=== PATIENT | male | born 1985 | race Caucasian/White ===

== ENCOUNTER 2019-10-06 04:35 | Day surgery (SDC) | payer BC ==
--- NOTE | 2019-09-08 11:33 | HP ---
DATE OF ADMISSION: 10/06/2019 BRIEF HISTORY: This is a 33-year-old gentleman who several months ago noted a lump in his right groin. Patient states the lump causes him discomfort, and depending on the day, the lump is sometimes larger than other days. He has had no nausea, no vomiting, no change in bowel habits. PAST MEDICAL HISTORY: No cardiac disease, hypertension, or diabetes. PAST SURGICAL HISTORY: Patient has had an open appendectomy approximately 15 years ago. ALLERGIES: None. MEDICATION: Vitamin C. SOCIAL HISTORY: Patient does not smoke. No history of drug use, and he drinks socially. PHYSICAL EXAMINATION: Abdomen: Soft, nontender, nondistended. He has a large right inguinal hernia which is reducible in the supine position. There is still a fair amount of fat in the right groin. There is slight asymmetry of fat in the right groin compared to the left groin. There is no obvious hernia in the left groin. Some laxity noted. A small hernia cannot be entirely ruled out. Both scrotum and testicles were within normal limits. IMPRESSION/PLAN: Right inguinal hernia, left floor laxity: This is a 33-year-old gentleman symptomatic from right inguinal hernia. At this point I would recommend repairing the right inguinal hernia, and at the time of laparoscopy the left side will be examined as well. If an occult hernia is noted, it will be repaired. If no hernia is seen, a piece of mesh will be left in direct inguinal space for reinforcement. The indications, alternatives, complications of procedure discussed. Questions answered. Will plan on obtaining written consent the day of surgery. ANALISA ROGEL M.D. [id number] cc: Dr. Diaz, [address] [place] [address], [facility]
[2019-10-01 15:30] VITALS: BMI 29.2
[2019-10-06] MEDS ORDERED: TAMSULOSIN HCL 0.4 MG CAP ONE (07:14)
[2019-10-06] MEDS ORDERED: SUCCINYLCHOLINE CHLORIDE 200 MG/10 ML SYRINGE ONE (07:22)
[2019-10-06] MEDS ORDERED: PROPOFOL 20 ML ONE (07:22)
[2019-10-06] MEDS ORDERED: ROCURONIUM BROMIDE 100 MG/10 ML VIAL ONE (07:22)
[2019-10-06] MEDS ORDERED: MIDAZOLAM HCL 2 MG/2 ML SINGLE DOSE VIAL ONE ×3 (07:22→07:42)
[2019-10-06] MEDS ORDERED: LIDOCAINE HCL/PF 2% SDV 5ML VIAL ONE (07:23)
[2019-10-06] MEDS ORDERED: DEXAMETHASONE SOD PHOSPHATE/PF 10 MG/ML SDV ONE (07:41)
[2019-10-06] MEDS ORDERED: ceFAZolin SODIUM 1 GM VIAL ONE (08:22)
[2019-10-06] MEDS ORDERED: ceFAZolin SODIUM 1 GM VIAL IVPB ONE (08:23)
[2019-10-06] MEDS ORDERED: GLYCOPYRROLATE 0.2 MG/1 ML VIAL ONE (09:07)
[2019-10-06] MEDS ORDERED: NEOSTIGMINE METHYLSULFATE 0.5 MG/ML - 10 ML MDV ONE (09:07)
[2019-10-06] MEDS ORDERED: DEXAMETHASONE SOD PHOSPHATE 4 MG/1 ML VIAL ONE (09:10)
[2019-10-06] MEDS ORDERED: oxyCODONE HCL 5 MG TABLET PO PRN ×2 (09:52)
[2019-10-06] MEDS ORDERED: ONDANSETRON 4 MG/2 ML VIAL IVPUSH PRN (09:52)
[2019-10-06] MEDS ORDERED: LACTATED RINGERS SOLUTION 1,000 ML IV SCH (10:00)
--- NOTE | 2019-10-06 12:11 | OP ---
DATE OF OPERATION: 10/06/2019 PREOPERATIVE DIAGNOSIS: Chronically incarcerated right inguinal hernia. POSTOPERATIVE DIAGNOSIS: Chronically incarcerated right pantaloon inguinal hernia, left indirect inguinal hernia. PROCEDURE: Laparoscopic repair of incarcerated right inguinal hernia with mesh, laparoscopic repair of left inguinal hernia with mesh. SURGEON: Alberto Jacob MD BMX RIDER: Gary eDan MD ANESTHESIA: Vicki Menchaca MD (general). ESTIMATED BLOOD LOSS: Minimal. SPECIMEN: None. INDICATION FOR PROCEDURE: This is a 33-year-old gentleman symptomatic from a large chronically incarcerated right inguinal hernia. It is causing discomfort. He wished to have this repaired. DESCRIPTION OF PROCEDURE: Patient identified and appropriately position on the operating room table. After placement of general anesthesia, prepped and draped in the usual sterile fashion with ChloraPrep. An infraumbilical incision was made on the right side and deepened into the subcutaneous tissue. The fascia of the rectus muscle on the right identified, divided sharply and the muscle split. Under direct vision, a resector balloon followed by a structural balloon was placed. Also under direct vision, suprapubic 11-mm port placed. The following structures on the right side were identified: Pubic tubercle, Sher's ligament, inferior epigastric vessels, and lateral abdominal wall. During this dissection, patient was noted to have an incarcerated direct inguinal hernia containing fat. This was reduced back into the preperitoneal space with blunt dissection. He also had a large indirect inguinal hernia that was incarcerated through the internal ring. A 5-mm left lower quadrant PD port placed under direct vision to facilitate this dissection. Once the sac was reduced, a 5.5 x 6 piece of Versatex mesh was keyholed, placed through the superior port site. The mesh wrapped around the cord structures laterally to reconstruct the internal ring. Laterally, mesh anchored to the anterior abdominal wall and lateral abdominal wall. Medially, the mesh anchored to the anterior abdominal wall, pubic tubercle, Sher's ligament. Upon completion of the right side, similar structures on the left side identified. On the left side he had some attenuation of the direct inguinal floor, but no true defect. He also had a small indirect inguinal hernia sac reduced back into the preperitoneal space. Another 5.5 x 6 piece of Versatex mesh was keyholed, placed through the superior port site. The mesh wrapped around the cord structures laterally to reconstruct the internal ring. Laterally, mesh anchored to the anterior abdominal wall and lateral abdominal wall. Medially, mesh well overlapped in the midline, anchored to the anterior abdominal wall, pubic tubercle, and Sher's ligament. The preperitoneal space was desufflated under direct vision, the operative field noted to be hemostatic. The fascia at the supraumbilical and infraumbilical port sites was reapproximated with interrupted 0 Vicryl suture. All skin closed with 4-0 Biosyn followed by Dermabond. At the conclusion of this case, sponge and needle counts correct. ATTESTATION: Brief operative note handwritten on the preprinted form. [facility] queried prior to giving any narcotics. Kai FORMAN [id number] Cc: Dr. Diaz [address] [place] [address]
[2019-10-06 12:41] VITALS: BP 110/68; PULSE 60; TEMP 98
== END 2019-10-06 12:25 | disposition home or self-care (01) ==
LOC: JASU-SURG 04:35
PROVIDERS: ATTEND Surgery
PROC: 0YUA0JZ Supplement Bilateral Inguinal Region with Synthetic Substitute, Open Approach (ICD-10-PCS; principal; 2019-10-06 08:32)
DX: K40.30 Unilateral inguinal hernia, with obstruction, without gangrene, not specified as recurrent (principal); K40.90 Unilateral inguinal hernia, without obstruction or gangrene, not specified as recurrent
CPT/HCPCS: 94760